=== PATIENT | female | born 1965 | race Caucasian/White ===

== ENCOUNTER 2024-05-29 17:16 | Emergency (ER) | payer BC ==
[~2024-05-29] VITALS: Ht 152.4 cm; Wt 93.9 kg
[2024-05-29] MEDS ORDERED: VALA500T41 PO (17:45)
[2024-05-29] MEDS ORDERED: PEGF6DIS2 (17:45)
[2024-05-29] MEDS ORDERED: ONDA-104 (17:45)
[2024-05-29] MEDS ORDERED: LIDO30CR TOP (17:45)
[2024-05-29] MEDS ORDERED: CLIN30GE2 TOP (17:45)
[2024-05-29] MEDS ORDERED: LATA2.5D14 EACHEYE (17:45)
[2024-05-29 18:35] LABS: ALBUMIN 3.3 G/DL (3.4-5.0); ANION GAP 8 (8-16); BLOOD UREA NITROGEN 15 MG/DL (7-18); BUN/CREATININE RATIO 18.8 (10.0-20.0); CALCIUM 8.5 MG/DL (8.5-10.1); CHLORIDE 106 MMOL/L (99-107); GLUCOSE 137 MG/DL (70-104); POTASSIUM 3.2 MMOL/L (3.5-5.1); SODIUM 140 MMOL/L (135-145); TOTAL CARBON DIOXIDE 26.3 MMOL/L (24-32); eCRCL 55 ML/MIN; eGFR 74 ML/MIN
[2024-05-29 18:38] LABS: HEMATOCRIT 29.2 % (35.0-45.0); HEMOGLOBIN 9.7 g/dl (12.0-16.0); LYMPHOCYTES # (AUTO) 0.5 X10'3 (1.1-4.8); MEAN CORPUSCULAR HGB CONC 33.4 g/dL (33.0-36.5); RED BLOOD COUNT 3.01 X10'6 (4.20-5.60)
[2024-05-29 18:40] LABS: BASOPHILS % (AUTO) 0.8 % (0-1); EOSINOPHILS % (AUTO) 3.5 % (0-6); MEAN CORPUSCULAR HEMOGLOBIN 32.3 PG (27.0-31.0); MEAN CORPUSCULAR VOLUME 96.9 FL (78-98); MONOCYTES % (AUTO) 8.1 % (2-12); NEUTROPHILS # (AUTO) 0.1 X10'3 (1.8-7.7); NEUTROPHILS % (AUTO) 8.6 % (42-75); RED CELL DISTRIBUTION WIDTH 15.1 % (11.5-14.5)
[2024-05-29] MEDS ORDERED: iohexol 300mg/ml 100ml inj. ONE (18:41)
[2024-05-29 19:04] LABS: PLATELET COUNT 42 X10'3 (140-440); WHITE BLOOD COUNT 0.6 X10'3 (4.5-11.0)
[2024-05-29] MEDS ORDERED: VANCOMYCIN 1GM 200ML H20 (PEG) 200 ML IV ONE (19:05)
[2024-05-29 19:27] LABS: TOTAL CELLS COUNTED 50
[2024-05-29 19:28] LABS: ANISOCYTOSIS 1+; PLATELET ESTIMATE DECREASED
[2024-05-29] MEDS: normal saline 1000ML IV soln IVB ONE (19:44)
[2024-05-29] MEDS: vancomycin/NS 1 GM ADD-VANTAGE 250 ML X 1 DOSE IV ONE (19:46)
[2024-05-29 19:51] LABS: C-REACTIVE PROTEIN 4.77 MG/DL (0.0-0.5)
[2024-05-29] MEDS: piperacillin/tazo 4.5gm/100ml 100 ML IV ONE (20:15)
[2024-05-30 01:51] LABS: BILIRUBIN,URINE NEGATIVE (Neg); CLARITY,URINE CLEAR (Clear); COLOR,URINE YELLOW (Yellow); GLUCOSE, URINE NEGATIVE (Neg); KETONES,URINE NEGATIVE (Neg); LEUKOCYTE ESTERASE ,URINE NEGATIVE (Neg); NITRITES, URINE NEGATIVE (Neg); OCCULT BLOOD,URINE NEGATIVE (Neg); PH,URINE 5.5 (4.8-8.0); PROTEIN,URINE NEGATIVE (Neg); UROBILINOGEN,URINE 0.2 E.U/dL (0.2-1.0)
[2024-05-30 02:24] LABS: UA COLLECTION TYPE CLN CATCH MIDSTREAM
[2024-05-30 14:34] VITALS: BP 105/66; PULSE 95; RESP 16; TEMP 98.5; O2SAT 95
== END 2024-05-30 18:18 | disposition short-term general hospital (02) ==
LOC: ER 17:16
DX: T80.212A Local infection due to central venous catheter, initial encounter (principal); A41.9 Sepsis, unspecified organism; D84.9 Immunodeficiency, unspecified; L03.313 Cellulitis of chest wall; Z88.5 Allergy status to narcotic agent; Z85.3 Personal history of malignant neoplasm of breast; Z91.048 Other nonmedicinal substance allergy status
CPT/HCPCS: 36415; 71045; 71260; 80048; 81003; 83605; 84145; 85007; 85025; 85651; 86140; 87040; 93005; 96365; 96368; 99291; J2543; J3370; J7030; Q9967

== ENCOUNTER 2024-06-06 23:34 | Inpatient (IN) | payer BC ==
[~2024-06-06] VITALS: Ht 152.4 cm; Wt 90.9 kg
[~2024-06-06 23:34] MED LIST: CLIN30GE2 TOP; LATA2.5D14 EACHEYE; LIDO30CR TOP; ONDA-104; PEGF6DIS2; VALA500T41 PO
[2024-06-07] VITALS (19 sets, daily range): BP systolic 115–144; BP diastolic 53–86; PULSE 18–112; RESP 14–20; TEMP 97.5–98; O2SAT 92–98
[2024-06-07] MEDS ORDERED: FLUO20CA39 PO ×2 (00:05→09:24)
[2024-06-07] MEDS ORDERED: CEPH-585 PO ×2 (00:07→09:26)
[2024-06-07 01:08] LABS: BASOPHILS % (AUTO) 0.3 % (0-1); EOSINOPHILS % (AUTO) 0.2 % (0-6); HEMATOCRIT 28.7 % (35.0-45.0); HEMOGLOBIN 9.9 g/dl (12.0-16.0); LYMPHOCYTES # (AUTO) 1.6 X10'3 (1.1-4.8); LYMPHOCYTES % (AUTO) 23.1 % (21-51); MEAN CORPUSCULAR HEMOGLOBIN 32.8 PG (27.0-31.0); MEAN CORPUSCULAR HGB CONC 34.3 g/dL (33.0-36.5); MEAN CORPUSCULAR VOLUME 95.5 FL (78-98); MONOCYTES % (AUTO) 14.6 % (2-12); NEUTROPHILS # (AUTO) 4.3 X10'3 (1.8-7.7); NEUTROPHILS % (AUTO) 61.8 % (42-75); PLATELET COUNT 261 X10'3 (140-440); RED BLOOD COUNT 3.01 X10'6 (4.20-5.60); RED CELL DISTRIBUTION WIDTH 15.9 % (11.5-14.5)
[2024-06-07 01:14] LABS: APTT 25 SECONDS (22-32); PROTHROMBIN TIME 9.8 SECONDS (9.0-12.0)
[2024-06-07 01:16] LABS: ALANINE AMINOTRANSFERASE 59 U/L (12-78); ALBUMIN 3.4 G/DL (3.4-5.0); ALBUMIN/GLOBULIN RATIO 1.1 (1.1-1.5); ALKALINE PHOSPHATASE 138 IU/L (46-116); ANION GAP 8 (8-16); ASPARTATE AMINO TRANSFERASE 24 U/L (10-37); BILIRUBIN,TOTAL 0.3 MG/DL (0.1-1.0); BLOOD UREA NITROGEN 11 MG/DL (7-18); BUN/CREATININE RATIO 14.3 (10.0-20.0); CALCIUM 8.6 MG/DL (8.5-10.1); CHLORIDE 106 MMOL/L (99-107); CREATININE 0.77 MG/DL (0.40-0.90); GLUCOSE 122 MG/DL (70-104); POTASSIUM 3.4 MMOL/L (3.5-5.1); SODIUM 139 MMOL/L (135-145); TOTAL CARBON DIOXIDE 24.9 MMOL/L (24-32); TOTAL PROTEIN 6.4 G/DL (6.4-8.2); eCRCL 57 ML/MIN; eGFR 77 ML/MIN
[2024-06-07] MEDS ORDERED: iohexol 350MG/ML 100ml bottle IV ONE (01:21)
[2024-06-07 01:24] LABS: MAGNESIUM 1.8 MG/DL (1.5-2.4); PRO BRAIN NATRIURETIC PEPTIDE 47 PG/ML (0-125)
[2024-06-07] MEDS: ondansetron/PF 4mg/2ml inj IV ONE (01:24)
[2024-06-07] MEDS: morphine 4 MG/ML inj SYRINge IV ONE (01:25)
[2024-06-07] MEDS ORDERED: magnesium sulf-water 4G/100mL 100 ML IV PRN (07:55)
[2024-06-07] MEDS ORDERED: potassium Cl 20 mEq SR tablet PO PRN (07:55)
[2024-06-07] MEDS ORDERED: potassium Cl 40MEQ/1/2NS 520ml 520 ML IV PRN (07:55)
[2024-06-07] MEDS ORDERED: HYDROmorphone inj. 0.5 MG/0.5 ML DISP.SYRIN IV PRN (07:55)
[2024-06-07] MEDS ORDERED: magnesium sulf-water 2g/50mL 50 ML IV PRN (07:55)
[2024-06-07] MEDS ORDERED: acetaminophen 325mg tablet PO PRN ×2 (07:55)
[2024-06-07] MEDS ORDERED: magnesium hydroxide 30ml (MOM) UD suspension PO PRN (07:55)
[2024-06-07] MEDS ORDERED: mag hydrox/Alum hydrox/simeth 30ml oral suspension PO PRN (07:55)
[2024-06-07] MEDS ORDERED: ondansetron/PF 4mg/2ml inj IV PRN ×2 (07:55→10:30)
[2024-06-07] MEDS: docusate sod 100mg capsule PO SCH (08:46)
[2024-06-07] MEDS: normal saline 1000ml 1,000 ML IV SCH (08:46)
[2024-06-07] MEDS: K and/or MAG REPLACEMENT MC SCH (08:54)
[2024-06-07] MEDS: potassium Cl 20 mEq SR tablet PO PRN (08:55)
[2024-06-07] MEDS: INDOCYANINE GREEN 25 MG/10 ML VIAL IV STA (09:39)
[2024-06-07] MEDS ORDERED: BUPIVAcaine 2.5mg/ml inj 50ml vial (contains preservative) ONE (10:22)
[2024-06-07] MEDS ORDERED: LIDOcaine 1% (10mg/ml)w/preservative inj. 20ml MDV ONE ×2 (10:22→11:25)
[2024-06-07] MEDS ORDERED: meperidine/PF 25mg/ml syringe IV PRN ×3 (10:30)
[2024-06-07] MEDS ORDERED: labetalol 20mg/4ml (5mg/ml) syringe IV PRN (10:30)
[2024-06-07] MEDS ORDERED: morphine 2 MG/ML inj. syringe IV PRN (10:30)
[2024-06-07] MEDS ORDERED: morphine 4 MG/ML inj SYRINge IV PRN (10:30)
[2024-06-07] MEDS ORDERED: proCHLORperazine 10 MG/2 ml inj IV PRN (10:30)
[2024-06-07] MEDS ORDERED: enalaprilat 1.25mg/ml 2ml vial IV PRN (10:30)
[2024-06-07] MEDS: ringers solution, lacted 1,000 ML IV SCH (10:30)
[2024-06-07] MEDS ORDERED: sevoflurane 250ml liquid IH ONE (10:42)
[2024-06-07] MEDS ORDERED: midazolam 1 mg/ML 2ml injection ONE (10:47)
[2024-06-07] MEDS ORDERED: fentaNYL/PF 50MCG/1 ML 2ML syringe ONE (10:47)
[2024-06-07] MEDS ORDERED: propofol inj 20 ML IV ONE (10:50)
[2024-06-07] MEDS ORDERED: LIDOcaine 2% (20mg/ml) 5ml vial ONE (10:50)
[2024-06-07] MEDS ORDERED: dexamethasone sod phosphate 4mg/ml inj. ONE (11:02)
[2024-06-07] MEDS ORDERED: rocuronium 10mg/ml inj IV ONE (11:02)
[2024-06-07] MEDS ORDERED: ondansetron/PF 4mg/2ml inj ONE (11:02)
[2024-06-07] MEDS ORDERED: ceFAZolin 1000mg inj ONE ×2 (11:11)
[2024-06-07] MEDS: BUPIVAcaine/PF 2.5 mg/ml (0.25%) 30ml vial IJ ONE (11:15)
[2024-06-07] MEDS ORDERED: acetaminophen 1,000mg/100ml IV 100 ML IV ONE (12:01)
[2024-06-07] MEDS ORDERED: neostigmine methylsulfate 1 MG/ML 10ml vial ONE (12:20)
[2024-06-07] MEDS ORDERED: glycopyrrolate 0.2mg/ml inj ONE (12:20)
[2024-06-07] MEDS ORDERED: naloxone 0.4 mg/ml inj IV PRN (12:25)
[2024-06-07] MEDS ORDERED: HYDROcodone/acetaminophen 10/325mg tab PO PRN (12:25)
[2024-06-07] MEDS: ceFAZolin/D5W- 1GM premix 50 ML IV SCH (17:34)
[2024-06-07] MEDS: HYDROmorphone/PF 0.2 MG/ML SYRINGE IV PRN (17:41)
[2024-06-07] MEDS: enoxaparin 40mg/0.4ml syringe SQ SCH (20:57)
[2024-06-08 06:00] VITALS: BP 135/70; PULSE 89; RESP 16; TEMP 97.7; O2SAT 94
[2024-06-08 06:12] LABS: BASOPHILS % (AUTO) 0.2 % (0-1); EOSINOPHILS % (AUTO) 0 % (0-6); HEMATOCRIT 29.1 % (35.0-45.0); HEMOGLOBIN 9.7 g/dl (12.0-16.0); LYMPHOCYTES # (AUTO) 0.8 X10'3 (1.1-4.8); LYMPHOCYTES % (AUTO) 9.9 % (21-51); MEAN CORPUSCULAR HEMOGLOBIN 32.1 PG (27.0-31.0); MEAN CORPUSCULAR HGB CONC 33.3 g/dL (33.0-36.5); MEAN CORPUSCULAR VOLUME 96.3 FL (78-98); MEAN PLATELET VOLUME 8.1 FL (7.4-10.4); MONOCYTES # (AUTO) 0.6 X10'3 (0-0.9); MONOCYTES % (AUTO) 7.7 % (2-12); NEUTROPHILS # (AUTO) 6.3 X10'3 (1.8-7.7); NEUTROPHILS % (AUTO) 82.2 % (42-75); PLATELET COUNT 292 X10'3 (140-440); RED BLOOD COUNT 3.02 X10'6 (4.20-5.60); RED CELL DISTRIBUTION WIDTH 15.9 % (11.5-14.5); WHITE BLOOD COUNT 7.7 X10'3 (4.5-11.0)
[2024-06-08 06:19] LABS: ALBUMIN 3.2 G/DL (3.4-5.0); ALBUMIN/GLOBULIN RATIO 1.1 (1.1-1.5); ALKALINE PHOSPHATASE 140 IU/L (46-116); ANION GAP 8 (8-16); ASPARTATE AMINO TRANSFERASE 43 U/L (10-37); BILIRUBIN,TOTAL 0.3 MG/DL (0.1-1.0); BLOOD UREA NITROGEN 7 MG/DL (7-18); BUN/CREATININE RATIO 10.4 (10.0-20.0); CALCIUM 8.7 MG/DL (8.5-10.1); CHLORIDE 106 MMOL/L (99-107); CREATININE 0.67 MG/DL (0.40-0.90); GLUCOSE 112 MG/DL (70-104); POTASSIUM 4.2 MMOL/L (3.5-5.1); SODIUM 141 MMOL/L (135-145); TOTAL CARBON DIOXIDE 26.9 MMOL/L (24-32); TOTAL PROTEIN 6.1 G/DL (6.4-8.2); eCRCL 66 ML/MIN; eGFR 90 ML/MIN
[2024-06-08 06:43] LABS: ALANINE AMINOTRANSFERASE 80 U/L (12-78)
[2024-06-08 08:00] VITALS: RESP 16; O2SAT 94
[2024-06-08 09:35] LABS: PLATELET ESTIMATE NORMAL; TOTAL CELLS COUNTED 100
[2024-06-08 09:36] LABS: POLYCHROMASIA FEW; TEAR DROP CELLS FEW
[2024-06-08] MEDS: HYDROcodone/acetaminophen 5mg/325mg tablet PO PRN (09:43)
[2024-06-08 10:00] VITALS: BP 133/67; PULSE 96; RESP 18; TEMP 97.8; O2SAT 93
[2024-06-08] MEDS ORDERED: HYDR-3964 PO (11:20)
== END 2024-06-08 15:12 | disposition home or self-care (01) | DRG 418 ==
LOC: ER 23:35 → ED HOLD 06-07 07:59 → SUR 3N 06-07 10:19
PROVIDERS: ADMIT Family Medicine; ATTEND Family Medicine
PROC: BF121ZZ Fluoroscopy of Gallbladder using Low Osmolar Contrast (ICD-10-PCS; 2024-06-07)
PROC: 8E0W4CZ Robotic Assisted Procedure of Trunk Region, Percutaneous Endoscopic Approach (ICD-10-PCS; 2024-06-07)
PROC: B32T1ZZ Computerized Tomography (CT Scan) of Left Pulmonary Artery using Low Osmolar Contrast (ICD-10-PCS; 2024-06-07)
PROC: B3201ZZ Computerized Tomography (CT Scan) of Thoracic Aorta using Low Osmolar Contrast (ICD-10-PCS; 2024-06-07)
PROC: B32S1ZZ Computerized Tomography (CT Scan) of Right Pulmonary Artery using Low Osmolar Contrast (ICD-10-PCS; 2024-06-07)
PROC: 0FT44ZZ Resection of Gallbladder, Percutaneous Endoscopic Approach (ICD-10-PCS; principal; 2024-06-07 10:42)
DX: K80.62 Calculus of gallbladder and bile duct with acute cholecystitis without obstruction (principal); L03.313 Cellulitis of chest wall; K82.8 Other specified diseases of gallbladder; D64.9 Anemia, unspecified; D05.12 Intraductal carcinoma in situ of left breast; E66.9 Obesity, unspecified; E87.6 Hypokalemia; D05.11 Intraductal carcinoma in situ of right breast; Z80.3 Family history of malignant neoplasm of breast; Z80.6 Family history of leukemia; Z68.39 Body mass index [BMI] 39.0-39.9, adult
CPT/HCPCS: 99285; Z7506; Z7508; 36415; 71045; 71275; 76700; 80053; 82948; 83735; 83880; 84484; 85007; 85025; 85379; 85610; 85730; 87081; 93005; A4215; A4615; A4618; A7000; G0378; J0131; J0690; J1100; J1171; J1650; J2003; J2250; J2270; J2405; J2704; J2710; J3010; J3490; J7030; J7120; Q9967

== ENCOUNTER 2025-02-16 14:57 | Emergency (ER) | payer BC ==
[~2025-02-16] VITALS: Ht 152.4 cm; Wt 87.0 kg
[~2025-02-16 14:57] MED LIST changes: +CEPH-585 PO; -CLIN30GE2 TOP; +FLUO20CA41 PO; +HYDR-3964 PO; -LATA2.5D14 EACHEYE; +LATA2.5D7 EACHEYE; -LIDO30CR TOP; -ONDA-104; -VALA500T41 PO
[2025-02-16 15:07] VITALS: TEMP 97
--- NOTE | 2025-02-16 15:44 | Physician Documentation ---
History of Present Illness General Chief Complaint: Abdominal Pain Stated Complaint: ABD PAIN Time Seen by MD: 15:44 History of Present Illness Initial Comments 59 year old female with history of cancer presents to the emergency department for complaints of abdominal pain that has been present for three days. Patient states that six days ago she had a scan where there was found to be two masses on her liver. Patient states she has been having, abdominal pain for one month but it has recently moved into the epigastric area three days ago and rates it 9/10. She states her pain worsens with movement of coughing. Patient denies any nausea, shortness of breath, or cardiac issues. Of note, patient is receiving immunotherapy at [facility]. Medication Reconciliation Allergies: Coded Allergies: adhesive tape (Unverified Allergy, Unknown, 05/29/24) codeine (Unverified Allergy, Unknown, rash, 02/16/25) Scheduled Cephalexin*Monohydrate* (Keflex*), 1 CAP PO TID, (Reported) Fluoxetine Hcl* (Prozac*), 1 CAP PO DAILY, (Reported) Scheduled PRN Hydrocodone Bit/Acetaminophen (Hydrocodon-Acetaminophen 5-325), 1 TAB PO Q4H PRN for moderate or severe pain 4-10 Oxycodone Hcl/Acetaminophen (Oxycodone-Acetaminophen 10-325), 1 TAB PO Q8H PRN for pain Miscellaneous Medications Latanoprost (Latanoprost), EACHEYE, (Reported) Pegfilgrastim (Neulasta), (Reported) Review of Systems All Other Systems at this time: Reviewed and Negative ROS Patient was asked, but denied any other symptoms. All other systems are negative other than those mentioned above. Physical Exam Physical Exam Vital Signs: RN Vital Signs have been reviewed: Yes, Temperature: 97.0, Source: Temporal, Heart Rate: 98, Respiratory Rate: 18, BP: 139/85, Pulse Oximetry: 95, Weight: 87.000 Oxygen Flow Rate: 0 Pulse Oximetry Reflects: adequate oxygenation Physical Exam VITALS: Reviewed and as above. GENERAL: Alert, no apparent distress. HEENT: Normocephalic, atraumatic. PERRL, EOMI. Dry mucosa, no erythema. RESPIRATORY: Trace crackles bilaterally at bases. CHEST: No accessory muscle use, no retractions. CV: Regular rate and rhythm. No edema, no murmur, No: JVD GI: Epigastric tenderness with no peritoneal signs. bowel sounds present. No rebound, guarding, or rigidity. BACK: No CVA tenderness, no swelling. MUSCULOSKELETAL: No deformities, no edema SKIN: Warm and dry, no rash. NEURO: Oriented x4. No motor or sensory deficit. PSYCH: Normal mood and affect, no agitation. Progress Results/Orders Results/Orders Orders - ELVIN BRADLEY MD Cta Chest Ct Abd Pelvis (02/16/25 17:49) Ceftriaxone 2gm/D5w 50ml Bag (Rocephin 2 (02/16/25 18:25) Completed Orders - ELVIN BRADLEY MD Urinalysis, Cult If Indicated (02/16/25 15:16) Hcg, Ur Ql (02/16/25 15:16) Cbc/Diff (02/16/25 15:16) BMP (02/16/25 15:16) Lipase (02/16/25 15:16) CMP (02/16/25 15:16) Cta Chest Ct Abd Pelvis (02/16/25 17:49) Oxycodone/Acetaminophen Tablet (Percocet (02/16/25 16:20) Iohexol 350mg/Ml 100ml (Omnipaque 350mg/ (02/16/25 16:49) Medications Received in ER Medications (Trade) Dose Ordered Sig/Epifanio Route PRN Reason Start Time Stop Time Status Last Admin Dose Admin (Percocet 5-325mg tab) 1 tab ONCE ONCE PO 02/16/25 16:20 02/16/25 16:21 DC 02/16/25 17:37 1 TAB Vital Signs 02/16/25 02/16/25 02/16/25 15:07 16:13 16:14 Temp 97.0 Pulse 98 89 Resp 18 16 16 B/P (MAP) 139/85 157/91 (113) Pulse Ox 95 98 O2 Flow Rate 0 0 Laboratory Tests Test 02/16/25 15:15 02/16/25 15:26 Urine Specimen Description Cln catch midstream Urine Color Yellow Urine Clarity Clear Urine pH 6.0 Urine Specific Cass 1.015 Urine Protein Negative Urine Glucose (UA) Negative Urine Ketones Negative Urine Occult Blood Negative Urine Nitrite Negative Urine Bilirubin Small Urine Urobilinogen 0.2 Urine Leukocyte Esterase Negative Urine Culture Indicated Not ind Volume Urine Centrifuged 10 ml Urine HCG, Qualitative Negative Urine Comment White Blood Count 7.3 Red Blood Count 4.11 L Hemoglobin 12.2 Hematocrit 36.2 Mean Corpuscular Volume 88.1 Mean Corpuscular Hemoglobin 29.7 Mean Corpuscular Hemoglobin Concent 33.7 Red Cell Distribution Width 14.3 Platelet Count 123 L Mean Platelet Volume 8.6 Neutrophils (%) (Auto) 69.3 Lymphocytes (%) (Auto) 23.2 Monocytes (%) (Auto) 5.3 Eosinophils (%) (Auto) 0.7 Basophils (%) (Auto) 1.5 H Neutrophils # (Auto) 5.1 Lymphocytes # (Auto) 1.7 Monocytes # (Auto) 0.4 Eosinophils # (Auto) 0.1 Basophils # (Auto) 0.1 CBC Comment Sodium Level 140 Potassium Level 3.4 L Chloride Level 103 Carbon Dioxide Level 30.5 Anion Gap 7 L Blood Urea Nitrogen 7 Creatinine 1.10 H Estimated GFR/1.73 m2 51 BUN/Creatinine Ratio 6.4 L Glucose Level 97 Calcium Level 9.2 Total Bilirubin 0.9 Aspartate Amino Transf (AST/SGOT) 96 H Alanine Aminotransferase (ALT/SGPT) 103 H Alkaline Phosphatase 373 H Total Protein 7.7 Albumin 3.4 Globulin 4.3 Albumin/Globulin Ratio 0.8 L Lipase 18 Chemistry Comments Departure Time of Disposition: 18:31 Disposition: HOME / SELF CARE / HOMELESS Impression: Primary Impression: Abdominal pain Qualified Codes: R10.13 - Epigastric pain Discharge Instructions: Abdominal Pain (Nonspecific) Referrals: NO PRIMARY CARE PROVIDER (PCP) Prescriptions Oxycodone Hcl/Acetaminophen (Oxycodone-Acetaminophen 10-325) 10 Mg-325 Mg Tablet 1 TAB PO Q8H PRN for pain, #12 TAB Prov: ELVIN BRADLEY MD 02/16/25 Signature Scribe Signature: no scribe ELVIN BRADLEY MD Feb 16, 2025 15:44
[2025-02-16 15:50] LABS: CREATININE 1.10 MG/DL (0.40-0.90); TOTAL CARBON DIOXIDE 30.5 MMOL/L (24-32); eCRCL 40 ML/MIN; eGFR 51 ML/MIN
[2025-02-16 16:07] LABS: MEAN PLATELET VOLUME 8.6 FL (7.4-10.4); RED CELL DISTRIBUTION WIDTH 14.3 % (11.5-14.5)
[2025-02-16 16:24] LABS: URINE HCG NEGATIVE (NEG)
[2025-02-16 16:35] LABS: LEUKOCYTE ESTERASE ,URINE NEGATIVE (Neg); NITRITES, URINE NEGATIVE (Neg); OCCULT BLOOD,URINE NEGATIVE (Neg)
[2025-02-16 16:41] LABS: UA COLLECTION TYPE CLN CATCH MIDSTREAM
[2025-02-16] MEDS: oxyCODONE/APAP 5-325mg tablet PO ONE (17:37)
[2025-02-16] MEDS ORDERED: CefTRIAXone 2gm/D5W 50ml BAG 50 ML IV ONE (18:25)
--- NOTE | 2025-02-16 18:25 | RADIOLOGY REPORT ---
PROCEDURE: CT CTA CHEST CT ABD PELVIS W/ IV CONTRAST HISTORY: chest epigastric pain Comparison Study: CT CTA CHEST PE W/ IV CONTRAST on DOS: 06/07/24, DI CHEST,SINGLE VIEW on DOS: 06/07/24, CT CT CHEST W/ IV CONTRAST on DOS: 05/29/24, DI CHEST,SINGLE VIEW on DOS: 05/29/24 Exam Date:02/16/2025 05:34 PM TECHNIQUE: CTA scanner volumetric data acquisition of abdomen and pelvis was obtained following intravenous administration of intravenous contrast without any reported adverse effects. Axial images were reconstructed and additional sagittal and coronal images were reformatted. arterial phase imaging were performed. Postprocessing was also performed on a Separate workstation. 3D images were performed on a dedicated workstation and reviewed for reporting. Radiation Dose : CT Dose: CTDI volume is 26 mGy. Dose-length product is 2708 mGy*cm FINDINGS: Vascular: No evidence of aortic aneurysm or dissection. Lung Bases: No acute or significant lung base finding. Normal heart size. No pleural or pericardial effusion. Liver: Heterogeneous mass is seen in the anterior liver measuring 5.3 x 11 cm. Additional heterogeneous mass is seen in the right hepatic lobe measuring up to 4.5 cm. Gallbladder and Biliary Tree: Unremarkable Spleen: Unremarkable Pancreas: The pancreas is normal in appearance without focal lesions or abnormal enhancement. Adrenal Glands: Unremarkable Kidneys: Kidneys demonstrate normal symmetric enhancement without focal lesions, calculi or hydronephrosis. Bladder: Unremarkable Bowel: The stomach is grossly normal in appearance. Small bowel and colon are normal in caliber and distribution. Normal appendix is visualized in the right lower quadrant without findings of appendicitis. Ascites: Absent Lymphadenopathy: No mesenteric, retroperitoneal or periportal lymphadenopathy. Abdominal Wall and Mesentery: Unremarkable. Vasculature: The visualized abdominal aorta is normal in size and caliber. Abdominal and pelvic vessels demonstrate normal enhancement. Pelvic Organs: Unremarkable Musculoskeletal: No aggressive focal bony lesions, acute fractures or dislocation. IMPRESSION: 1. No evidence of acute aneurysm or dissection. 2. Heterogeneous mass is seen in the anterior liver measuring 5.3 x 11 cm. Additional heterogeneous mass is seen in the right hepatic lobe measuring up to 4.5 cm. Differential considerations include neoplasm or abscess. 3. Further evaluation with MRI of the liver with and without contrast is recommended.
[2025-02-16] MEDS ORDERED: OXYC1TAB17 PO (18:28)
[2025-02-16 18:59] VITALS: BP 126/74; PULSE 89; RESP 19; O2SAT 94
== END 2025-02-16 19:01 | disposition home or self-care (01) ==
LOC: ER 14:58
DX: R10.13 Epigastric pain (principal); Z91.048 Other nonmedicinal substance allergy status; Z88.5 Allergy status to narcotic agent; Z79.899 Other long term (current) drug therapy
CPT/HCPCS: 71275; 74177; 80053; 81003; 81025; 83690; 85025; 99285; Q9967